=== PATIENT | female | born 1990 | race African-American/Black ===

== ENCOUNTER 2022-07-13 13:27 | Emergency (ER) | payer MEDICAID, OTHER ==
[~2022-07-13] VITALS: Ht 170.2 cm; Wt 108.0 kg
[~2022-07-13 13:27] MED LIST: CLARITIN; PRENATAL VITS
[2022-07-13 13:42] VITALS: BP 145/70
[2022-07-13] MEDS ORDERED: PREDNISONE 20MG TABLET PO ONE (14:00)
[2022-07-13] MEDS ORDERED: IPRATROPIUM/ALBUTEROL 0.5-3(2.5)MG/3ML NEB HHN ONE (14:00)
[2022-07-13] MEDS: PREDNISONE 20MG TABLET PO NR ×2 (17:15→20:15)
[2022-07-13] MEDS: IPRATROPIUM/ALBUTEROL 0.5-3(2.5)MG/3ML NEB HHN NR ×4 (17:30→20:16)
[2022-07-13] MEDS ORDERED: ALBU6.7H3 INH (20:14)
[2022-07-13] MEDS ORDERED: [UNRECOGNIZED DRUG - CODE] MC (20:16)
[2022-07-13] MEDS ORDERED: NEBU-248 MC (20:16)
[2022-07-13] MEDS ORDERED: ALBU05 NEB (20:16)
[2022-07-13] MEDS ORDERED: P20 MT (20:17)
== END 2022-07-13 20:27 | disposition home or self-care (01) ==
LOC: ER 15:22
DX: J45.21 Mild intermittent asthma with (acute) exacerbation (principal); Z77.120 Contact with and (suspected) exposure to mold (toxic)
CPT/HCPCS: 71045; 94640; 99283; J7512; Z7610